=== PATIENT | female | born 1990 | race Caucasian/White ===

== ENCOUNTER 2016-10-24 23:09 | Outpatient (CLI) | payer SELFPAY | END 2016-10-24 23:10 | disposition EMS.NT | LOC: EMS 23:09 | PROVIDERS: ATTEND Surgery | DX: S09.90XA Unspecified injury of head, initial encounter (principal); S80.212A Abrasion, left knee, initial encounter; S80.812A Abrasion, left lower leg, initial encounter; W18.30XA Fall on same level, unspecified, initial encounter; Y92.039 Unspecified place in apartment as the place of occurrence of the external cause ==